=== PATIENT | female | born 1965 | race African-American/Black ===

== ENCOUNTER 2016-10-19 08:17 | Emergency (ER) | payer OTHER ==
[2016-10-19 08:27] VITALS: BP 116/67; PULSE 64; TEMP 98; BMI 25.0
--- NOTE | 2016-10-19 08:58 | PDOC ---
History of Present Illness - General Chief Complaint: Injury Stated Complaint: RT HAND INJURY Time Seen by Provider: 10/19/16 08:38 History Source: Patient Exam Limitations: No Limitations - History of Present Illness Initial Comments: 10/19/16 08:55 CHIEF COMPLAINT: Injury to right third finger HISTORY OF PRESENT ILLNESS: Patient is a 51-year-old female, place [facility] states that her finger got caught between the door while working, complaining of pain to right third distal finger there is mild edema, no deformity, no subungual hematoma, no bruising. Good range of motion to finger. 10/19/16 08:56 Timing/Duration: 1 hour Severity: mild Associated Symptoms: reports: denies symptoms Past History - Past Medical History Allergies/Adverse Reactions: Allergies Allergy/AdvReac Type Severity Reaction Status Date / Time No Known Allergies Allergy Verified 10/19/16 08:23 Home Medications: Ambulatory Orders NK [No Known Home Medication] 10/19/16 - Immunization History Immunization Up to Date: Yes - Psycho/Social/Smoking Cessation Hx Anxiety: No Suicidal Ideation: No Smoking Status: Yes Smoking History: Former smoker Have you smoked in the past 12 months: No Number of Cigarettes Smoked Daily: 3 Information on smoking cessation initiated: No 'Breaking Loose' booklet given: 07/06/13 Hx Alcohol Use: No Review of Systems - Review of Systems Constitutional: No: Symptoms Reported Respiratory: No: Symptoms reported Musculoskeletal: Yes: Joint Pain (distal right third finger) Integumentary: No: Bruising, Erythema Neurological: No: Symptoms reported, Paresthesia, Tingling All Other Systems: Reviewed and Negative *Physical Exam - Vital Signs Last Vital Signs Temp Pulse Resp BP Pulse Ox 98 F 64 18 116/67 100 10/19/16 08:18 10/19/16 08:18 10/19/16 08:18 10/19/16 08:18 10/19/16 08:18 - Physical Exam General Appearance: Yes: Appropriately Dressed. No: Apparent Distress Musculoskeletal: positive: Other (mild edema to distal right third finger, no deformity, no erythema edema or bruising.) Extremity: positive: Tender, Swelling (mild swelling to distal right third finger). negative: Erythema Integumentary: positive: Normal Color, Swelling. negative: Erythema, Ecchymosis , Bruising Neurologic: positive: Alert, Normal Mood/Affect ED Treatment Course - RADIOLOGY Radiology Studies Ordered: Category Date Time Status FINGER(S) RIGHT [RAD] Stat Radiology 10/19/16 08:39 Taken Medical Decision Making - Medical Decision Making 10/19/16 08:57 A/P: Injury to distal right third finger, crush injury with no visible deformity. Will perform x-ray to rule out acute fracture, there is no open areas patient does not require tetanus at this time, awaiting x-ray results. 10/19/16 09:18 X-rays negative, will DC patient home, Motrin for pain, follow-up with employee health as needed. *DC/Admit/Observation/Transfer Diagnosis at time of Disposition: Finger injury Qualifiers: Encounter type: initial encounter Laterality: right Qualified Code(s): S69.91XA - Unspecified injury of right wrist, hand and finger(s), initial encounter - Discharge Dispostion Disposition: HOME Condition at time of disposition: Good Admit: No - Referrals Referrals: Peter Saldivar MD [Staff Physician] - - Patient Instructions Additional Instructions: Ice and elevate, Motrin for pain, follow-up with employee health if time off, follow-up with orthopedics if pain persists. - Post Discharge Activity Work/School Note: Back to Work
== END 2016-10-19 09:29 | disposition home or self-care (01) ==
LOC: JERFT 08:17 → JER 08:17 → JERFT 09:29
DX: S67.192A Crushing injury of right middle finger, initial encounter (principal); W23.0XXA Caught, crushed, jammed, or pinched between moving objects, initial encounter; Y93.89 Activity, other specified; Y92.238 Other place in hospital as the place of occurrence of the external cause; Y99.0 Civilian activity done for income or pay
CPT/HCPCS: 73140-TC-RT; 99281-25

== ENCOUNTER 2020-11-13 14:34 | Emergency (ER) | payer OTHER ==
[2020-11-13 14:42] VITALS: BP 113/71; PULSE 56; TEMP 97.4; BMI 22.7
[2020-11-13] MEDS ORDERED: ACETAMINOPHEN 500 MG TABLET (FP) PO ONE (14:59)
[2020-11-13] MEDS ORDERED: ACETAMINOPHEN 500 MG TABLET (FP) ONE (15:01)
== END 2020-11-13 15:31 | disposition home or self-care (01) ==
LOC: JERFT 14:34
PROC: 2W3KX1Z Immobilization of Left Finger using Splint (ICD-10-PCS; principal; 2020-11-13)
DX: S69.92XA Unspecified injury of left wrist, hand and finger(s), initial encounter (principal)
CPT/HCPCS: 73140-TC-LT-FY; 99283-25

== ENCOUNTER 2021-09-13 06:37 | Emergency (ER) | payer OTHER ==
[2021-09-13 06:54] VITALS: BP 130/82; PULSE 71; TEMP 98; BMI 25.0
[2021-09-13] MEDS ORDERED: ACETAMINOPHEN 325 MG TABLET (FP) PO ONE (07:20)
[2021-09-13] MEDS ORDERED: ACETAMINOPHEN 325 MG TABLET (FP) ONE (07:30)
== END 2021-09-13 09:26 | disposition home or self-care (01) ==
LOC: JER 06:37
DX: M25.561 Pain in right knee (principal)
CPT/HCPCS: 73564-TC-RT-FY; 93971-TC; 99284-25

== ENCOUNTER 2022-08-07 08:16 | Emergency (ER) | payer OTHER ==
[2022-08-07 08:37] VITALS: BP 139/52; PULSE 97; RESP 16; TEMP 97.8; BMI 26.6
== END 2022-08-07 09:26 | disposition home or self-care (01) ==
LOC: JERFT 08:16 → JER 08:16 → JERFT 09:26
DX: H00.024 Hordeolum internum left upper eyelid (principal); H10.32 Unspecified acute conjunctivitis, left eye
CPT/HCPCS: 99281-25

== ENCOUNTER 2022-10-18 09:45 | Emergency (ER) | payer OTHER ==
[2022-10-18 10:11] VITALS: BP 123/63; PULSE 60; RESP 17; TEMP 98.2; BMI 26.3
[2022-10-18] MEDS ORDERED: ACETAMINOPHEN 325 MG TABLET (FP) PO ONE (11:13)
[2022-10-18] MEDS ORDERED: ACETAMINOPHEN 325 MG TABLET (FP) ONE (11:19)
[2022-10-18 11:44] LABS: BASO % 0.9 % (0-2.0); EOS % 1.8 % (0-4.5); HEMATOCRIT 40.8 % (32.4-45.2); HEMOGLOBIN 14.2 GM/dL (10.7-15.3); LYMPH % 46.8 % (8-40); MCH 32.2 pg (25.7-33.7); MCHC 34.7 g/dl (32.0-36.0); MEAN CELL VOLUME 92.8 fl (80-96); MEAN PLT VOLUME 7.5 fl (7.5-11.1); MONO % 7.4 % (3.8-10.2); NEUT % 43.1 % (42.8-82.8); PLATELET COUNT 309 10^3/uL (134-434); RDW 14.1 % (11.6-15.6); WHITE BLOOD COUNT 5.9 K/mm3 (4.0-10.0)
[2022-10-18 11:54] LABS: URINE APPEARANCE CLEAR; URINE BILIRUBIN NEGATIVE (NEGATIVE); URINE COLOR YELLOW; URINE GLUCOSE (UA) NEGATIVE (NEGATIVE); URINE KETONE NEGATIVE (NEGATIVE); URINE LEUK ESTERASE NEGATIVE (NEGATIVE); URINE NITRITE NEGATIVE (NEGATIVE); URINE PROTEIN NEGATIVE (NEGATIVE); URINE UROBILINOGEN 0.2 mg/dL (0.2-1.0)
[2022-10-18 12:01] LABS: POTASSIUM 4.7 mmol/L (3.5-5.1)
[2022-10-18 12:03] LABS: ALBUMIN 3.7 g/dl (3.4-5.0); BLOOD UREA NITROGEN 16.7 mg/dL (7-18); CALCIUM 9.6 mg/dL (8.5-10.1)
[2022-10-18 12:06] LABS: CREATININE 0.7 mg/dL (0.55-1.3)
[2022-10-18 12:08] LABS: TOT PROT 7.2 g/dl (6.4-8.2)
[2022-10-18 12:09] LABS: BILIRUBIN,TOTAL 0.7 mg/dL (0.2-1)
== END 2022-10-18 14:18 | disposition home or self-care (01) ==
LOC: JER 09:45
DX: R10.10 Upper abdominal pain, unspecified (principal)
CPT/HCPCS: 36415; 71046-TC-FY; 74019-TC-FY; 76705-TC; 80053; 81003; 83690; 84484; 85025; 93005; 93010; 99285-25

== ENCOUNTER 2023-05-12 08:19 | Emergency (ER) | payer OTHER ==
[2023-05-12 08:27] VITALS: BP 143/50; PULSE 82; RESP 18; TEMP 97.7; BMI 26.6
[2023-05-12] MEDS ORDERED: ACETAMINOPHEN 1000 MG/100 ML BAG IVPB ONE (09:04)
[2023-05-12] MEDS ORDERED: SODIUM CHLORIDE 1,000 ML IV STA (09:04)
[2023-05-12] MEDS ORDERED: METOCLOPRAMIDE HCL INJECTION 10 MG/2 ML VIAL IVPUSH ONE (09:05)
[2023-05-12 09:29] LABS: BASO % 0.8 % (0-2.0); EOS % 1.3 % (0-4.5); HEMOGLOBIN 14.1 GM/dL (10.7-15.3); LYMPH % 48.9 % (8-40); MCH 30.4 pg (25.7-33.7); MCHC 32.7 g/dl (32.0-36.0); MEAN PLT VOLUME 7.3 fl (7.5-11.1); MONO % 6.9 % (3.8-10.2); NEUT % 42.1 % (42.8-82.8); PLATELET COUNT 348 10^3/uL (134-434); RBC 4.63 M/mm3 (3.60-5.2); RDW 13.9 % (11.6-15.6); WHITE BLOOD COUNT 5.5 K/mm3 (4.0-10.0)
[2023-05-12] MEDS ORDERED: METOCLOPRAMIDE HCL INJECTION 10 MG/2 ML VIAL ONE (09:29)
[2023-05-12 09:48] LABS: POTASSIUM 4.3 mmol/L (3.5-5.1)
[2023-05-12 09:50] LABS: CALCIUM 9.6 mg/dL (8.5-10.1)
[2023-05-12 09:51] LABS: ALBUMIN 3.7 g/dl (3.4-5.0); BLOOD UREA NITROGEN 13.3 mg/dL (7-18)
[2023-05-12 09:54] LABS: CREATININE 0.6 mg/dL (0.55-1.3)
[2023-05-12 09:55] LABS: BILIRUBIN,TOTAL 0.3 mg/dL (0.2-1)
[2023-05-12 09:57] LABS: TOT PROT 7.1 g/dl (6.4-8.2)
[2023-05-12] MEDS ORDERED: ACETAMINOPHEN INJECTION 100 ML IVPB ONE (10:08)
== END 2023-05-12 11:52 | disposition home or self-care (01) ==
LOC: JER 08:19
PROC: 3E033GC Introduction of Other Therapeutic Substance into Peripheral Vein, Percutaneous Approach (ICD-10-PCS; principal; 2023-05-12)
PROC: 3E033NZ Introduction of Analgesics, Hypnotics, Sedatives into Peripheral Vein, Percutaneous Approach (ICD-10-PCS; 2023-05-12)
PROC: 3E0337Z Introduction of Electrolytic and Water Balance Substance into Peripheral Vein, Percutaneous Approach (ICD-10-PCS; 2023-05-12)
DX: R42 Dizziness and giddiness (principal); G43.909 Migraine, unspecified, not intractable, without status migrainosus; Z20.822 Contact with and (suspected) exposure to COVID-19
CPT/HCPCS: 0241U-QW; 36415; 71045-TC-FY; 80053; 84484; 85025; 93005; 93010; 99285-25

== ENCOUNTER 2024-04-06 07:23 | Emergency (ER) | payer OTHER ==
[2024-04-06 07:29] VITALS: BP 139/83; PULSE 54; RESP 16; TEMP 97.7; BMI 25.8
[2024-04-06] MEDS ORDERED: IBUPROFEN 400 MG TABLET (FP) PO ONE (07:53)
[2024-04-06] MEDS: IBUPROFEN 400 MG TABLET (FP) PO ONE (08:01)
== END 2024-04-06 08:08 | disposition home or self-care (01) ==
LOC: JER 07:23 → JERFT 07:23
PROC: 2W3JX1Z Immobilization of Right Finger using Splint (ICD-10-PCS; principal; 2024-04-06)
DX: S63.632A Sprain of interphalangeal joint of right middle finger, initial encounter (principal); W22.8XXA Striking against or struck by other objects, initial encounter; Y99.0 Civilian activity done for income or pay
CPT/HCPCS: 99283-25